=== PATIENT | male | born 1975 | race Two or more races ===

== ENCOUNTER → 2021-01-02 | Day surgery (SDC) | payer OTHER ==
[~2021-01-02] MED LIST: ABILIFY5 MG PO; AMBIEN5 MG PO; PAXIL10 MG/5 ML PO
== END | disposition home or self-care (01) ==
LOC: ADM 12-31 14:45 → AMB-ENDOS 10:46
PROVIDERS: ATTEND Colon & Rectal Surgery
DX: D12.3 Benign neoplasm of transverse colon (principal); K64.8 Other hemorrhoids; Z20.822 Contact with and (suspected) exposure to COVID-19; Z12.11 Encounter for screening for malignant neoplasm of colon

== ENCOUNTER 2023-01-07 09:25 | Day surgery (SDC) | payer OTHER | END 2023-01-07 16:20 | disposition home or self-care (01) | LOC: AMB-ENDOS 09:25 | PROVIDERS: ATTEND Colon & Rectal Surgery | DX: D12.0 Benign neoplasm of cecum (principal); D12.2 Benign neoplasm of ascending colon; D12.4 Benign neoplasm of descending colon; K62.5 Hemorrhage of anus and rectum; K57.30 Diverticulosis of large intestine without perforation or abscess without bleeding; R19.4 Change in bowel habit; K64.8 Other hemorrhoids; Z20.822 Contact with and (suspected) exposure to COVID-19 ==